=== PATIENT | female | born 1940 | race Caucasian/White ===

== ENCOUNTER 2017-06-19 20:53 | Observation (INO) ==
[2017-06-19] MEDS: 0.9 % Sodium Chloride 1,000 ML IVC SCH (23:54)
--- NOTE | 2017-06-20 00:31 | Internal Med History&Physical ---
<Thompson Campoverde - Last Filed: 06/20/17 02:04> Date of Encounter: 06/20/17 Time of Encounter: 00:31 Assessment and Plan (1) Hematuria Current visit: Yes Status: Acute - Gross hematuria. - Hemodynamically stable. H/H of 10.8/33.5 - Likely secondary to infection. Kidney function appears at baseline. No evidence of stone on CT. - UA showing leukocyte esterase and CT show bladder mass most likely representing clot - Malignancy unlikely given timeline from previous CT 1 week ago. - Urology consulted in ED, will see in AM. - IVF, rocephin, close monitoring for blood loss. Qualifiers: Hematuria type: gross Qualified Code(s): R31.0 - Gross hematuria (2) Anemia Current visit: Yes Status: Acute Likely secondary to acute blood loss - H/H stable as above. Will closely monitor - Type and screen. - Hemodynamically stale. No complaints of weakness. Qualifiers: Anemia type: unspecified type Qualified Code(s): D64.9 - Anemia, unspecified (3) UTI (urinary tract infection) Current visit: Yes Status: Acute UA in [place] significant for gross blood, leukocyte esterase, WBCs. - Symptomatic with frequency, urgency, dysuria. - Afebrile, no CVA tenderness, normal WBC - Started on Rocephin. Will continue Qualifiers: Urinary tract infection type: acute cystitis Hematuria presence: with hematuria Qualified Code(s): N30.01 - Acute cystitis with hematuria (4) DVT prophylaxis Current visit: Yes Status: Acute SCDs in the setting of gross hematuria. Internal Medicine - H&P: HPI Chief complaint: hematuria Admitted From: Direct Admit Plans for Post Hospital Care: Home History of present illness: Ms. Vargas is a 76 year old female who was transferred from [facility] for hematuria. 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 She stats she has been having progressive hematuria for a couple weeks now. It started as pink tinged urine, however now is gross blood in her urine with clots up to 7-8cm in length. She admits to a recent history of dysuria, as well as increased frequency, urgency. She also admits to stress incontinence however this is chronic. Denies any symptoms of lightheadedness, dizziness, CP, SOB, weakness, pain, nausea, vomiting, diarrhea, bleeding from other sources. CT done at [facility] showed bladder mass most likely clot vs possible infection. UA showed TMTC RBCs, large leukocyte esterase. SHe was started on rocephin. Urology was called and will see the pt in the AM. Hanley catheter was attempted in ED and was unable to be placed. Post void bladder scan showed 140 mL. Past Med Surg Social Fam HX - Past Medical History Medical history: arthritis, cancer, GI bleed, renal disease Psychiatric history: no psych history - Past Surgical History Surgical History: cholecystectomy, orthopedic, other, other - Social History Smoking Status: Never smoker Smokeless Tobacco Status: No Alcohol use: none Drug use: none Internal Medicine - H&P: Meds No Known Home Drugs 06/19/17 [History] 3 Allergy/AdvReac Type Severity Reaction Status Date / Time cephalexin [From Keflex] AdvReac Hives Verified 06/19/17 21:03 ANTI AdvReac Rash Uncoded 06/12/17 18:28 antibiotic - unknown AdvReac Rash Uncoded 06/19/17 18:23 All Systems PM: A 10-system review of systems was performed and is negative for pertinent findings except as documented above in the HPI. - Constitutional Constitutional: no chills, no fatigue, no fever(s), no weakness - Cardiovascular Cardiovascular ROS IM: no chest pain, no dyspnea, no dyspnea on exertion, no edema, no lightheadedness, no palpitations - Respiratory Respiratory: no cough, no dyspnea, no dyspnea on exertion, no wheezing - Gastrointestinal Gastrointestinal: no abdominal pain, no change in bowel habits, no change in stool character, no diarrhea, no hematochezia, no loose stools, no melena, no nausea, no vomiting - Genitourinary Genitourinary: amenorrhea, dysuria, hematuria, urinary frequency, urinary incontinence, urinary urgency, no difficulty urinating, no difficulty voiding, no flank pain, no pelvic pain, no urinary hesitancy Menstruation: post menopausal - Musculoskeletal Musculoskeletal ROS IM: no muscle weakness, no numbness, no tingling - Neurological Neurological ROS: no numbness, no tingling, no weakness - Constitutional Vitals: Temp Pulse Resp BP Pulse Ox 98.6 F 71 16 139/75 96 06/19/17 23:09 06/19/17 23:09 06/19/17 23:09 06/19/17 23:09 06/19/17 23:09 Exam: Gen.: Vitals noted. No acute distress. AAOx3 HEENT: PERRL/EOMI, oropharynx clear, Normocephalic, atraumatic, MMM. No conjunctival pallor. Cardiac: RRR, mild systolic murmur, +S1/S2 Pulmonary: CTA bilaterally, no wheezes, rales or rhonchi, equal chest expansion Abdomen: soft, nontender, BS noted, no guarding or rebound. Back: Nontender throughout. MSK: ROM intact, no joint swelling noted Extremities: no BLE edema, nontender calf, no cyanosis or clubbing Neuro: A&Ox3, moves all extremities, no focal deficits Psych: Appropriate mood and behavior Internal Med - H&P Results - Labs CBC & Chem 7: 06/20/17 00:32 06/20/17 00:32 <Bobby Winters - Last Filed: 06/20/17 05:26> Date of Encounter: 06/20/17 Time of Encounter: 02:35 Past Med Surg Social Fam HX - Additional Family History Additional family history: no FH of bladder tumors - Constitutional Constitutional: no chills, no fever(s) - EENT Eyes: no blurry vision, no change in vision Ears: no ear pain, no tinnitus Nose, mouth and throat: no nasal congestion, no sinus pressure, no sore throat - Cardiovascular Cardiovascular ROS IM: no chest pain, no dyspnea - Respiratory Respiratory: no cough, no chest congestion - Gastrointestinal Gastrointestinal: no abdominal pain, no diarrhea, no hematemesis, no hematochezia, no melena, no nausea, no vomiting - Genitourinary Genitourinary: dysuria, hematuria, urinary incontinence, urinary urgency, no flank pain - Musculoskeletal Musculoskeletal ROS IM: no arthralgias, no atrophy, no back pain - Integumentary Integumentary IM: no rash, no jaundice - Neurological Neurological ROS: no dizziness, no focal weakness, no frequent falls - Psychiatric Psychiatric: no anxiety, no depression - Endocrine Endocrine IM: no polydipsia, no polyuria - Hematologic/Lymphatic Hematologic/Lymphatic: no easy bruising, no lymphadenopathy - Allergic/Immunologic Allergic/Immunologic: no wheezing - Constitutional Vitals: Temp Pulse Resp BP Pulse Ox 98.8 F 73 16 88/46 95 06/20/17 03:13 06/20/17 03:13 06/20/17 03:13 06/20/17 03:13 06/20/17 03:13 General appearance: Present: cooperative, A&O X 3, pleasant, no acute distress - Head Head exam: Present: atraumatic, normal inspection - Eye Eye exam: Present: PERRL. Absent: scleral icterus - ENT ENT exam: Present: mucous membranes dry, normal exam - Neck Neck exam general surgery: Present: supple. Absent: tenderness - Respiratory Respiratory exam: Present: CTAB. Absent: rales, respiratory distress, rhonchi, wheezes - Cardiovascular Cardiovascular exam: Present: RRR, +S1, +S2. Absent: systolic murmur - GI/Abdominal GI/Abdominal exam: Present: normal bowel sounds, soft. Absent: hepatomegaly, splenomegaly, tenderness Additional comments: mild suprapubic tenderness, otherwise negative - Extremities Exam Extremities exam: Present: full ROM, warm, radial pulses palpable and symmetrical. Absent: calf tenderness, tenderness - Back Exam Back exam: Absent: CVA tenderness (L), CVA tenderness (R) - Neurological Exam Neurological exam: Present: alert, CN II-XII intact, oriented X3, no focal deficits - Psychiatric Psychiatric exam: Present: normal affect, normal mood - Skin Skin exam: Present: dry, warm. Absent: rash Internal Med - H&P Results - Labs CBC & Chem 7: 06/20/17 00:32 06/20/17 00:32 Labs: Short CBC 06/20/17 Range/Units 00:32 WBC 2.5 L (4.3-11.1) K/mcL Hgb 10.4 L (11.5-15.4) g/dL Hct 32.3 L (35.3-44.9) % Plt Count 168 (140-400) K/mcL Neutrophils # 1.6 (1.6-8.9) K/mcL BMP 06/20/17 00:32 Sodium 142 Potassium 3.4 L Chloride 107 Carbon Dioxide 26 BUN 11 Creatinine 0.82 Glucose 137 H Calcium 8.6 - Attending Attestation I discussed the patient BAD RIVER BAND, PMH, ROS, lab data, and exam findings with Dr. Campoverde. I then saw and examined patient independently as well. I also discussed the patient case with [facility] attending (Dr. Lobo) prior to transfer. Patient has had gross hematuria for the last several days. Imaging on CT shows a soft tissues mass in her bladder, likely a clot. Dr. Lobo transferred patient to our service after phone consultation with urology. Dr. Reyes will see patient today. Patient denies any difficulty emptying her bladder on my history. She does have some dysuria and frequency, however. Patient had radiation to her pelvis and chemotherapy roughly 3 years ago for treatment of her cervical cancer. I reviewed her labs at [facility] and here as well as her CT results. I agree with IVF, antibiotics, following culture results, and planned urology consultation. Other than my comments above and noted exam findings, I agree with Dr. Campoverde's assessment and plan.
[2017-06-20 00:42] LABS: Basophils % 0.4 %; Eosinophils % 1.2 %; Hematocrit 32.3 % (35.3-44.9); Hemoglobin 10.4 g/dL (11.5-15.4); Lymphocytes # 0.7 K/mcL (0.6-4.6); Lymphocytes % 25.8 %; Mean Corpuscular HGB Conc 32.2 g/dL (31.6-35.5); Mean Corpuscular Hemoglobin 30.1 pg (28.0-33.3); Mean Corpuscular Volume 93.6 fL (83.0-100.0); Mean Platelet Volume 8.6 fL (9.4-12.4); Monocytes # 0.2 K/mcL (0.0-1.3); Monocytes % 9.5 %; Neutrophils # 1.6 K/mcL (1.6-8.9); Platelet Count 168 K/mcL (140-400); Red Blood Count 3.45 M/mcL (3.82-4.97); Red Cell Distribution Width 14.5 % (11.5-14.5); Segmented Neutrophils % 63.1 %
[2017-06-20 00:55] LABS: BUN/Creatinine Ratio 13 (6-26); Blood Urea Nitrogen 11 mg/dL (7-20); Calcium 8.6 mg/dL (8.6-10.8); Carbon Dioxide 26 mEq/L (19-29); Chloride 107 mEq/L (98-109); Glucose 137 mg/dL (70-99); Osmolality,Calculated 296 (280-300); Potassium 3.4 mEq/L (3.5-4.5); Sodium 142 mEq/L (136-145); eGFR For African Americans > 60 (> 60); eGFR For Non-African Americans > 60 (> 60)
[2017-06-20] MEDS ORDERED: Ondansetron 4 MG/2 ML VIAL IVP PRN ×2 (00:56→18:40)
[2017-06-20] MEDS ORDERED: Acetaminophen 325 MG TABLET PO PRN ×2 (00:56→18:40)
[2017-06-20] MEDS ORDERED: *HR* HYDROcodone/Acet 5/325 mg TABLET PO PRN ×2 (00:56→18:40)
[2017-06-20] MEDS ORDERED: Naloxone 0.4 MG/ML INJ IVP PRN ×2 (00:56→18:40)
--- NOTE | 2017-06-20 08:08 | Urology - Consult Note ---
Date of Encounter: 06/20/17 Time of Encounter: 08:06 - Assessment and Plan (1) Hematuria Current Visit: Yes Status: Acute Assessment and plan: 76-year-old woman with a history of hematuria and a urethral stricture. I recommend proceeding to the OR for a cystoscopy, urethral dilation, clot evacuation, fulguration, and possible resection of bladder tumor. She was informed of the risks of the surgery which include but are not limited to bleeding, infection, injury to structures, need for further procedures, and the risk of anesthesia. She is willing to proceed. Qualifiers: Hematuria type: gross Qualified Code(s): R31.0 - Gross hematuria (2) UTI (urinary tract infection) Current Visit: Yes Status: Acute Assessment and plan: She is currently on ceftriaxone. Await urine culture results. Of note, her urine culture from June 12, 2017 was negative. Qualifiers: Urinary tract infection type: acute cystitis Hematuria presence: with hematuria Qualified Code(s): N30.01 - Acute cystitis with hematuria Urology CN:HPI Consult date: 06/20/17 Reason for consult Urology: Gross Hematuria Requesting physician: Elana Lobo History of present illness: 76-year-old woman presents with a history of hematuria. She has a history of cervical cancer status post radiation therapy for this. She also has developed left ureteral obstruction and has an indwelling left ureteral stent which was placed up at [facility]. She thinks this was placed sometime around September 2016. She reports noting blood in the urine over the last 1-2 days. Yesterday she noted blood clots and came to the emergency department. Their attempts at placing a catheter, but she has a history of a urethral stricture. They were unable to place a catheter. She was then transferred to [facility]. She believes her urine is becoming more clear. She does report a history of urinary retention. She tells me that previously, pediatric catheters were placed to drain her bladder. Past Med Surg Social Fam HX - Past Medical History Medical history: arthritis, cancer, GI bleed, renal disease Psychiatric history: no psych history - Past Surgical History Surgical History: cholecystectomy, orthopedic, other, other - Social History Smoking Status: Never smoker Smokeless Tobacco Status: No Alcohol use: none Drug use: none Medications and Allergies No Known Home Drugs 06/19/17 [History] 3 Allergy/AdvReac Type Severity Reaction Status Date / Time cephalexin [From Keflex] AdvReac Hives Verified 06/19/17 21:03 Review of Systems - Constitutional no chills, no fever(s) - EENT Nose, mouth and throat: no dizziness - Cardiovascular no chest pain - Respiratory no dyspnea - Gastrointestinal no nausea, no vomiting - Genitourinary Genitourinary: hematuria, no flank pain - Musculoskeletal no back pain - Integumentary no erythema, no rash - Neurological no weakness - Psychiatric no suicidal ideation - Hematologic/Lymphatic no easy bleeding - Allergic/Immunologic no wheezing Exam Initial Vital Signs Temp Pulse Resp BP Pulse Ox 98.6 F 71 16 139/75 96 06/19/17 23:09 06/19/17 23:09 06/19/17 23:09 06/19/17 23:09 06/19/17 23:09 - General physical appearance Present: well developed, well nourished - Eyes Absent: icteric - ENT Present: normal nares - Neck Present: trachea midline - Respiratory Present: normal respiratory effort - Cardiovascular Cardiovascular exam IM: RRR - Abdomen Abdomen: Present: soft Urology Results - Labs 06/20/17 00:32 06/20/17 00:32 Abnormal lab results WBC 2.5 K/mcL (4.3-11.1) L 06/20/17 00:32 RBC 3.45 M/mcL (3.82-4.97) L 06/20/17 00:32 Hgb 10.4 g/dL (11.5-15.4) L 06/20/17 00:32 Hct 32.3 % (35.3-44.9) L 06/20/17 00:32 MPV 8.6 fL (9.4-12.4) L 06/20/17 00:32 Potassium 3.4 mEq/L (3.5-4.5) L 06/20/17 00:32 Glucose 137 mg/dL (70-99) H 06/20/17 00:32 Diabetes panel 06/20/17 Range/Units 00:32 Sodium 142 (136-145) mEq/L Potassium 3.4 L (3.5-4.5) mEq/L Chloride 107 (98-109) mEq/L Carbon Dioxide 26 (19-29) mEq/L BUN 11 (7-20) mg/dL Creatinine 0.82 (0.57-1.11) mg/dL Glucose 137 H (70-99) mg/dL Calcium 8.6 (8.6-10.8) mg/dL Calcium panel 06/20/17 Range/Units 00:32 Calcium 8.6 (8.6-10.8) mg/dL Pituitary panel 06/20/17 Range/Units 00:32 Sodium 142 (136-145) mEq/L Potassium 3.4 L (3.5-4.5) mEq/L Chloride 107 (98-109) mEq/L Carbon Dioxide 26 (19-29) mEq/L BUN 11 (7-20) mg/dL Creatinine 0.82 (0.57-1.11) mg/dL Glucose 137 H (70-99) mg/dL Calcium 8.6 (8.6-10.8) mg/dL Adrenal panel 06/20/17 Range/Units 00:32 Sodium 142 (136-145) mEq/L Potassium 3.4 L (3.5-4.5) mEq/L Chloride 107 (98-109) mEq/L Carbon Dioxide 26 (19-29) mEq/L BUN 11 (7-20) mg/dL Creatinine 0.82 (0.57-1.11) mg/dL Glucose 137 H (70-99) mg/dL Calcium 8.6 (8.6-10.8) mg/dL All other labs normal. - Imaging CT scan - abdomen: report reviewed, image reviewed CT scan - pelvis: report reviewed, image reviewed Consult Discharge Plan - Plan Referrals: Gely Sumner, OVERLAY OPERATOR [Primary Care Provider] -
[2017-06-20] MEDS: 0.9 % Sodium Chloride 1,000 ML IVC SCH ×2 (08:54→19:52)
[2017-06-20] MEDS ORDERED: cefTRIAXone 1,000 MG in Water for inj. (sterile) 10 ML IVP SCH ×2 (09:00→21:00)
--- NOTE | 2017-06-20 13:36 | Internal Med Progress Note ---
Date of Encounter: 06/20/17 Time of Encounter: 13:33 - Assessment and plan (1) Hematuria Current Visit: Yes Status: Acute Assessment and plan: Mostly due to UTI However CT showed soft tissue mass int he bladder, could be clot she is scheduled for cystoscopy today..will f/u on that cont symptomatic and supportive care for now frequent checks of H/H Qualifiers: Hematuria type: gross Qualified Code(s): R31.0 - Gross hematuria (2) Anemia Current Visit: Yes Status: Acute Assessment and plan: Due to hematuria Hb dropped down to 10.4 from baseline 11.5 Cont close monitoring no need of transfusions Qualifiers: Anemia type: unspecified type Qualified Code(s): D64.9 - Anemia, unspecified (3) UTI (urinary tract infection) Current Visit: Yes Status: Acute Assessment and plan: cont empirical abx Rocephin will f/u on urine cx Qualifiers: Urinary tract infection type: acute cystitis Hematuria presence: with hematuria Qualified Code(s): N30.01 - Acute cystitis with hematuria (4) DVT prophylaxis Current Visit: Yes Status: Acute Assessment and plan: SCD's only - Subjective Interval history: Ms. Vargas is a 76 year old female who was transferred from [facility] for hematuria. 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 She stats she has been having progressive hematuria for a couple weeks now. It started as pink tinged urine, however now is gross blood in her urine with clots up to 7-8cm in length. Pt stated she is feeling better now and her hematuria also improving. No CP / SOB. - Constitutional Vitals: Temp Pulse Resp BP Pulse Ox 98.6 F 62 16 105/60 95 06/20/17 10:41 06/20/17 10:41 06/20/17 10:41 06/20/17 10:41 06/20/17 10:41 General appearance: Present: cooperative, A&O X 3, pleasant, no acute distress - Head Head exam: Present: atraumatic, normal inspection - Respiratory Respiratory exam: Present: decreased breath sounds. Absent: rales, respiratory distress, rhonchi, wheezes - Cardiovascular Cardiovascular exam: Present: RRR, +S1, +S2. Absent: systolic murmur - GI/Abdominal GI/Abdominal exam: Present: normal bowel sounds, soft. Absent: rebound, rigid, tenderness - Extremities Exam Extremities exam: Absent: calf tenderness, pedal edema, tenderness - Back Exam Back exam: Absent: CVA tenderness (L), CVA tenderness (R) - Neurological Exam Neurological exam: Present: alert, oriented X3 - Psychiatric Psychiatric exam: Present: normal affect, normal mood Internal Medicine: Result - Labs CBC & Chem 7: 06/20/17 00:32 06/20/17 00:32 Labs: Short CBC 06/20/17 Range/Units 00:32 WBC 2.5 L (4.3-11.1) K/mcL Hgb 10.4 L (11.5-15.4) g/dL Hct 32.3 L (35.3-44.9) % Plt Count 168 (140-400) K/mcL Neutrophils # 1.6 (1.6-8.9) K/mcL BMP 06/20/17 00:32 Sodium 142 Potassium 3.4 L Chloride 107 Carbon Dioxide 26 BUN 11 Creatinine 0.82 Glucose 137 H Calcium 8.6 Consult Discharge Plan - Plan Referrals: Gely Sumner, ROUTE INSPECTOR [Primary Care Provider] -
[2017-06-20 14:33] LABS: Hematocrit 33.8 % (35.3-44.9); Hemoglobin 10.8 g/dL (11.5-15.4)
--- NOTE | 2017-06-20 16:42 | Anesthesia Evaluation PreOp ---
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) Anesthesia History: No Prior Anesthetic Complications, Past Anesthesia (kamar, ortho) : No Alcohol Use: none Drug use: none Medications and Allergies No Known Home Drugs 06/19/17 [History] 3 Allergy/AdvReac Type Severity Reaction Status Date / Time cephalexin [From Keflex] AdvReac Hives Verified 06/19/17 21:03 - Meds/Allergy Pre-op Review Medications Reviewed: Yes Allergies Reviewed: Yes Beta Blockers on Current Med List: No Anesthesia Results - Labs 06/20/17 14:07 06/20/17 00:32 - Imaging EKG: report reviewed (sinus rythm 10/05) Anesthesia Exam Selected Entries 06/20/17 14:55 Temperature 98.8 F Pulse Rate 69 Respiratory Rate 18 Blood Pressure 118/67 O2 Sat by Pulse Oximetry 98 Weight: 59kg NPO (# of Hours): >>8 - HEENT Pupil (Motor): EOMI Mallampati: II Teeth: Edentulous Oral Opening: Greater than 3 - BARREL BANDER LOC: Oriented BARREL BANDER Motor: Normal RUE, Normal LUE, Normal RLE, Normal LLE, Normal Face BARREL BANDER Sensory: Normal: RUE, LUE, RLE, LLE, Face - Cardiac Rhythm: Regular Murmur: None - Pulmonary Breath Sounds: bilateral Clear Respiratory Effort: Symmetrical Anesthesia Assess/Plan ASA Score: 2 Modified Alberto Scale for Level of Consciousness: Cooperative, oriented, and tranquil Anesthetic Plan: General Monitoring Plan: Standard Monitors Recovery Plan: PACU (discussed risks of GA, agrees to proceed)
[2017-06-20] MEDS ORDERED: *HR* FentaNYL (PF) 100 MCG/2 ML VIAL ONE (17:10)
[2017-06-20] MEDS ORDERED: *HR* Propofol 200 MG/20 ML VIAL IVP ONE (17:10)
[2017-06-20] MEDS ORDERED: Ondansetron 4 MG/2 ML VIAL ONE (17:11)
[2017-06-20] MEDS ORDERED: Lidocaine -MPF 2% 2 ML VIAL ONE (17:11)
[2017-06-20] MEDS ORDERED: *HR* HYDROmorphone (PF) 1 MG/ML SYRINGE IVP PRN (17:19)
[2017-06-20] MEDS ORDERED: *HR* Promethazine 25 MG/ML VIAL IVP PRN (17:19)
[2017-06-20] MEDS ORDERED: Ondansetron 4 MG/2 ML VIAL IVP ONE (17:19)
[2017-06-20] MEDS ORDERED: EPHEDrine 50 MG/ML VIAL ONE (17:22)
--- NOTE | 2017-06-20 17:54 | Operative Note ---
Date of procedure: 06/20/17 Pre-op diagnosis: Hematuria Post-op diagnosis: same Procedure: Cystoscopy, fulguration. Implants: 22 Niuean 3-way catheter. Complications: None. 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 She has left ureteral obstruction with an indwelling metallic stent. She developed worsening bleeding and efforts by the nursing staff to place a catheter were not successful. I recommended proceeding to the operating room for cystoscopy, clot evacuation, fulguration, and possible bladder tumor resection. She was informed of the risks of the surgery which include but are not limited to bleeding, infection, injury to structures, need for further procedures, and the risk of anesthesia. She is we' ll to proceed. Procedure: After informed consent was obtained the patient was brought back to the operating room and placed in the supine position. A timeout was performed. Gen. anesthesia was then administered and a laryngeal mask airway was placed. She was then placed in the lithotomy position. Her genitalia were prepped and draped in usual sterile fashion. With a 17 Niuean sheath, I performed cystoscopy. There is no evidence of urethral stricture. Functional bladder there was a very small clot located at the bladder neck. This was irrigated away. A metallic stent was seen emanating from the left ureteral orifice. The right ureteral orifice was in the normal orthotopic position. There is no evidence of bladder tumor. The bladder was viewed with the 30 and 70 lenses. There was a small amount of bleeding at the bladder neck. The urethra was dilated with sounds to 30 Niuean. The 26 Niuean sheath was inserted. The Atkinson element was inserted and I cauterized the posterior bladder neck. Hemostasis appeared excellent. The scope was removed. A 22 Niuean 3-way catheter was in place. I started continuous bladder irrigation. Her urine was clear. She was then awakened from general anesthesia and brought to recovery room in good condition. All sponge, needle, and instruments counts were correct.
--- NOTE | 2017-06-20 18:20 | Anesthesia Evaluation Post Op ---
Date of Encounter: 06/20/17 Time of Encounter: 18:16 - Vital Signs Vital Signs: vss - Lungs Lungs: Clear Ascult./Percussion - Airway Airway: Non-obstructed - Cardiovascular Baseline Rhythm - Mental Status Mental Status: Asleep with brisk response to light stimulation - Pain Pain Scale used: Lisbet (Faces) - Nausea Vomiting Nausea Vomiting: Not Present - Hydration Hydration: Ice chips
[2017-06-20 21:47] LABS: Hemoglobin 10.3 g/dL (11.5-15.4)
[2017-06-21 03:59] LABS: Basophils % 0.4 %; Eosinophils # 0.1 K/mcL (0.0-0.6); Eosinophils % 2.1 %; Hematocrit 32.1 % (35.3-44.9); Hemoglobin 10.4 g/dL (11.5-15.4); Lymphocytes # 0.6 K/mcL (0.6-4.6); Lymphocytes % 26.4 %; Mean Corpuscular HGB Conc 32.4 g/dL (31.6-35.5); Mean Corpuscular Hemoglobin 29.7 pg (28.0-33.3); Mean Corpuscular Volume 91.7 fL (83.0-100.0); Mean Platelet Volume 9.2 fL (9.4-12.4); Monocytes # 0.2 K/mcL (0.0-1.3); Monocytes % 9.2 %; Neutrophils # 1.5 K/mcL (1.6-8.9); Platelet Count 155 K/mcL (140-400); Red Cell Distribution Width 14.6 % (11.5-14.5); Segmented Neutrophils % 61.9 %
[2017-06-21 04:18] LABS: BUN/Creatinine Ratio 13 (6-26); Blood Urea Nitrogen 9 mg/dL (7-20); Calcium 8.4 mg/dL (8.6-10.8); Carbon Dioxide 25 mEq/L (19-29); Chloride 110 mEq/L (98-109); Glucose 97 mg/dL (70-99); Osmolality,Calculated 295 (280-300); Potassium 3.7 mEq/L (3.5-4.5); Sodium 143 mEq/L (136-145); eGFR For African Americans > 60 (> 60); eGFR For Non-African Americans > 60 (> 60)
[2017-06-21] MEDS: 0.9 % Sodium Chloride 1,000 ML IVC SCH (06:27)
--- NOTE | 2017-06-21 07:41 | Urology Progress Note ---
Date of Encounter: 06/21/17 Time of Encounter: 07:39 - Assessment and Plan (1) Hematuria Current Visit: Yes Status: Acute Assessment and plan: Improving. I will remove her catheter today. Anticipate discharge home later today. She can follow-up with me in 2 weeks. Qualifiers: Hematuria type: gross Qualified Code(s): R31.0 - Gross hematuria (2) UTI (urinary tract infection) Current Visit: Yes Status: Acute Assessment and plan: Her urine culture was negative. Okay to discontinue antibiotic. Okay to discharge home later today. Qualifiers: Urinary tract infection type: acute cystitis Hematuria presence: with hematuria Qualified Code(s): N30.01 - Acute cystitis with hematuria Progress Note Narrative: Postop day #1 status post cystoscopy and fulguration. She is doing well. Her urine is clear on slow CBI. Objective Initial Vital Signs Temp Pulse Resp BP Pulse Ox 98.6 F 71 16 139/75 96 06/19/17 23:09 06/19/17 23:09 06/19/17 23:09 06/19/17 23:09 06/19/17 23:09 - General physical appearance Present: well developed, well nourished, no distress - Respiratory Present: normal respiratory effort - Abdomen Present: soft - Genitourinary Urine Appearance: Present: Clear - Labs 06/21/17 03:24 06/21/17 03:24 Diabetes panel 06/21/17 Range/Units 03:24 Sodium 143 (136-145) mEq/L Potassium 3.7 (3.5-4.5) mEq/L Chloride 110 H (98-109) mEq/L Carbon Dioxide 25 (19-29) mEq/L BUN 9 (7-20) mg/dL Creatinine 0.68 (0.57-1.11) mg/dL Glucose 97 (70-99) mg/dL Calcium 8.4 L (8.6-10.8) mg/dL Calcium panel 06/21/17 Range/Units 03:24 Calcium 8.4 L (8.6-10.8) mg/dL Pituitary panel 06/21/17 Range/Units 03:24 Sodium 143 (136-145) mEq/L Potassium 3.7 (3.5-4.5) mEq/L Chloride 110 H (98-109) mEq/L Carbon Dioxide 25 (19-29) mEq/L BUN 9 (7-20) mg/dL Creatinine 0.68 (0.57-1.11) mg/dL Glucose 97 (70-99) mg/dL Calcium 8.4 L (8.6-10.8) mg/dL Adrenal panel 06/21/17 Range/Units 03:24 Sodium 143 (136-145) mEq/L Potassium 3.7 (3.5-4.5) mEq/L Chloride 110 H (98-109) mEq/L Carbon Dioxide 25 (19-29) mEq/L BUN 9 (7-20) mg/dL Creatinine 0.68 (0.57-1.11) mg/dL Glucose 97 (70-99) mg/dL Calcium 8.4 L (8.6-10.8) mg/dL - VTE Documentation of Mechanical Device: Intermittent pneumatic compression device Consult Discharge Plan - Plan Referrals: Gely Sumner, GUEST SERVICE SUPERVISOR [Primary Care Provider] -
[2017-06-21 11:37] VITALS: BP 105/64
--- NOTE | 2017-06-21 11:41 | Discharge Summary ---
Date of Encounter: 06/21/17 Time of Encounter: 11:37 - Discharge Diagnosis (1) Hematuria Priority: Primary Status: Acute Qualifiers: Hematuria type: gross Qualified Code(s): R31.0 - Gross hematuria (2) Anemia Priority: Primary Status: Acute Qualifiers: Anemia type: unspecified type Qualified Code(s): D64.9 - Anemia, unspecified (3) UTI (urinary tract infection) Priority: Primary Status: Acute Qualifiers: Urinary tract infection type: acute cystitis Hematuria presence: with hematuria Qualified Code(s): N30.01 - Acute cystitis with hematuria (4) DVT prophylaxis Priority: Secondary Status: Acute - Discharge Medications Prescriptions: Ciprofloxacin HCl [Cipro] 500 mg PO BID #6 tablet Home Medications: Ciprofloxacin HCl [Cipro] 500 mg PO BID #6 tablet 06/21/17 [Rx] Allergies/Adverse Reactions: 3 Allergy/AdvReac Type Severity Reaction Status Date / Time cephalexin [From Keflex] AdvReac Hives Verified 06/19/17 21:03 Date of admission: 06/19/17 22:24 Primary care physician: Gely Sumner CNP - Patient Status Disposition: Home, Self-Care Condition: Good Overall status at discharge: patient is back to baseline - Discharge Instructions Follow Up With: Gely Sumner CNP [Primary Care Provider] - 06/27/17 9:30 am Abrahan Cee MD [Partnered Physician] - 07/03/17 2:30 pm - Diet and Activity Activity: increase activity as tolerated Diet: advance to your usual diet Hospital course: Ms. Vargas is a 76 year old female who was transferred from [facility] for hematuria. 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 She stats she has been having progressive hematuria for a couple weeks now. Pt was admitted in the hospital and started her on empirical abx Cefepime since UA was abnormal with esterase and Nitrite positive. We monitored her Hb closely, which stayed stable around 10.4. She did go for Cystoscopy with fulguration. Her hematuria resolved now. Pt's urine cx came back as no growth however with her abnormal UA and hematuria , will treat her with PO Abx for 3 more days. Will d/c her home today in stable condition. Need to f/u with Urologist in 2 weeks. - Time Spent with Patient Total time spent providing and/or coordinating discharge services: - Constitutional Vitals: Temp Pulse Resp BP Pulse Ox 98.3 F 68 16 105/64 93 06/21/17 11:35 06/21/17 11:35 06/21/17 11:35 06/21/17 11:35 06/21/17 11:35 General appearance: Present: cooperative, A&O X 3, pleasant, no acute distress - Head Head exam: Present: atraumatic, normal inspection - Respiratory Respiratory exam: Present: decreased breath sounds. Absent: rales, respiratory distress, rhonchi, wheezes - Cardiovascular Cardiovascular exam: Present: RRR, +S1, +S2. Absent: systolic murmur - GI/Abdominal GI/Abdominal exam: Present: soft. Absent: distended, rebound, rigid, tenderness - Extremities Exam Extremities exam: Absent: calf tenderness, pedal edema, tenderness - Back Exam Back exam: Absent: CVA tenderness (L), CVA tenderness (R) - Neurological Exam Neurological exam: Present: alert, oriented X3 - Psychiatric Psychiatric exam: Present: normal affect, normal mood - VTE Documentation of Mechanical Device: Intermittent pneumatic compression device
== END 2017-06-21 14:48 | disposition home or self-care (01) ==
LOC: 3BNU
PROVIDERS: ADMIT Pediatrics; ATTEND Registered Nurse

== ENCOUNTER 2022-02-16 01:19 | Observation (INO) ==
[2022-02-16] MEDS ORDERED: Ondansetron 4 MG/2 ML VIAL IVP PRN (05:01)
[2022-02-16] MEDS ORDERED: Naloxone 0.4 MG/ML INJ IVP PRN (05:01)
[2022-02-16] MEDS ORDERED: Acetaminophen 325 MG TABLET PO PRN (05:01)
[2022-02-16 07:53] LABS: INR 1.1; Prothrombin Time 12.3 Seconds (9.4-12.1)
[2022-02-16 08:09] LABS: Activated Partial Thrombo Time 28.3 Seconds (26.0-36.0)
[2022-02-16] MEDS: *HR* OxyCODONE/APAP 5/325 TABLET PO PRN ×2 (10:03→22:38)
[2022-02-17 05:15] LABS: Hematocrit 39.9 % (35.3-44.9); Hemoglobin 12.7 g/dL (11.5-15.4); Mean Corpuscular HGB Conc 31.8 g/dL (31.6-35.5); Mean Corpuscular Hemoglobin 30.2 pg (28.0-33.3); Mean Platelet Volume 9.4 fL (9.4-12.4); Platelet Count 202 K/mcL (140-400); Red Cell Distribution Width 14.1 % (11.5-14.5)
[2022-02-17 05:30] LABS: BUN/Creatinine Ratio 21 (6-26); Blood Urea Nitrogen 14 mg/dL (8-23); Calcium 8.8 mg/dL (8.6-10.3); Carbon Dioxide 28 mEq/L (23-29); Chloride 104 mEq/L (98-107); Glucose 102 mg/dL (70-105); Osmolality,Calculated 287 (280-300); Potassium 3.7 mEq/L (3.5-5.1); Sodium 138 mEq/L (136-145); eGFR For African Americans > 60 (> 60); eGFR For Non-African Americans > 60 (> 60)
[2022-02-17] MEDS: *HR* OxyCODONE/APAP 5/325 TABLET PO PRN (19:56)
[2022-02-18] MEDS: *HR* OxyCODONE/APAP 5/325 TABLET PO PRN (21:23)
[2022-02-19] MEDS ORDERED: MOM Conc 10 ML UD.LIQ PO ONE (04:30)
[2022-02-19 07:17] LABS: Basophils % 0.3 %; Eosinophils # 0.1 K/mcL (0.0-0.6); Eosinophils % 1.5 %; Hematocrit 42.7 % (35.3-44.9); Hemoglobin 13.4 g/dL (11.5-15.4); Immature Granulocytes % 0.3 % (0-4); Lymphocytes % 16.4 %; Mean Corpuscular HGB Conc 31.4 g/dL (31.6-35.5); Mean Corpuscular Hemoglobin 29.7 pg (28.0-33.3); Mean Corpuscular Volume 94.7 fL (83.0-100.0); Mean Platelet Volume 9.2 fL (9.4-12.4); Monocytes % 7.3 %; Neutrophils # 4.5 K/mcL (1.6-8.9); Platelet Count 196 K/mcL (140-400); Red Blood Count 4.51 M/mcL (3.82-4.97); Red Cell Distribution Width 14.3 % (11.5-14.5); Segmented Neutrophils % 74.2 %
[2022-02-19 07:20] LABS: Monocytes # 0.5 K/mcL (0.0-1.3); White Blood Count 6.1 K/mcL (4.3-11.1)
[2022-02-19 07:28] LABS: Alanine Aminotransferase 14 Units/L (7-52); Albumin 3.5 g/dL (3.5-5.7); Albumin/Globulin Ratio 1.3 (1.1-2.2); Alkaline Phosphatase 62 Units/L (34-104); Aspartate Amino Transferase 16 Units/L (13-39); BUN/Creatinine Ratio 23 (6-26); Bilirubin,Total 0.3 mg/dL (0.3-1.0); Blood Urea Nitrogen 16 mg/dL (8-23); Calcium 8.7 mg/dL (8.6-10.3); Carbon Dioxide 28 mEq/L (23-29); Chloride 104 mEq/L (98-107); Globulin 2.8 g/dL (2.4-3.5); Glucose 109 mg/dL (70-105); Osmolality,Calculated 286 (280-300); Potassium 3.9 mEq/L (3.5-5.1); Sodium 137 mEq/L (136-145); Total Protein 6.3 g/dL (6.4-8.9); eGFR For African Americans > 60 (> 60); eGFR For Non-African Americans > 60 (> 60)
[2022-02-19] MEDS: polyethylene glycoL 3350 17 GM POWD.PACK PO SCH (14:02)
[2022-02-19] MEDS: Apixaban 5 MG TABLET PO SCH (20:04)
[2022-02-20] MEDS: Apixaban 5 MG TABLET PO SCH (09:09)
[2022-02-20] MEDS: polyethylene glycoL 3350 17 GM POWD.PACK PO SCH (09:09)
[2022-02-20 16:07] VITALS: BP 107/84; PULSE 86; TEMP 97.5; O2SAT 94
== END 2022-02-20 19:15 | disposition home or self-care (01) ==
LOC: 4WAOSI → SUATTDRO 04:15
PROVIDERS: ADMIT Internal Medicine; ATTEND Internal Medicine